=== PATIENT | female | born 1975 | race Caucasian/White ===

== ENCOUNTER → 2022-04-20 | Outpatient (CLI) | payer OTHER | LOC: COL.RAD 08:00 | DX: M25.551 Pain in right hip (principal) | CPT/HCPCS: J3301; Q9967 ==

== ENCOUNTER → 2022-10-25 | Outpatient (CLI) | payer OTHER | LOC: COL.RAD 10-24 08:00 | DX: M25.551 Pain in right hip (principal) | CPT/HCPCS: J3301; Q9967 ==

== ENCOUNTER → 2023-07-14 | Outpatient (CLI) | payer OTHER ==
[~2023-07-14] MED LIST: Iohexol 300 - 10 ML VIAL IV ONE; Triamcinolone 40 MG/ML 1 ML VIAL IJ ONE
== END ==
LOC: COL.RAD 15:31
DX: M70.61 Trochanteric bursitis, right hip (principal); M25.851 Other specified joint disorders, right hip
CPT/HCPCS: J0665; J3301; Q9967